=== PATIENT | female | born 1975 | race Native Hawaiian/Other Pacific Islander ===

== ENCOUNTER 2016-08-24 08:54 | Inpatient (IN) | payer OTHER ==
[~2016-08-24 08:54] MED LIST: CETI10TA PO; HYDACET7.5 PO; LORTAB1 TAB PO; LUBI24CA PO; MEDR150I3 IM; OMEPRAZOLE20 M1 PO; SERT100T PO; STOOL SOFTNR1 TAB PO; TIZA4TAB5 PO; ZANAFLEX2 MG PO
== END 2016-09-24 08:00 | disposition still patient (30) ==
LOC: PAVB 08:54
PROVIDERS: ADMIT Family Medicine
DX: Z51.89 Encounter for other specified aftercare (principal)

== ENCOUNTER 2016-09-24 09:00 | Inpatient (IN) | payer OTHER | END 2016-10-25 10:52 | disposition still patient (30) | LOC: PAVB 09:00 | PROVIDERS: ADMIT Family Medicine | DX: Z51.89 Encounter for other specified aftercare (principal) ==

== ENCOUNTER 2016-10-25 11:33 | Inpatient (IN) | payer OTHER | END 2016-11-22 12:31 | disposition still patient (30) | LOC: PAVB 11:33 | PROVIDERS: ADMIT Family Medicine | DX: Z51.89 Encounter for other specified aftercare (principal) ==

== ENCOUNTER 2016-10-27 11:09 | Outpatient (CLI) | payer OTHER ==
[2016-10-27 11:24] LABS: POTASSIUM 4.1 mmol/L (3.6-5.2); SODIUM 139 mmol/L (136-145)
[2016-10-27 11:52] LABS: PLATELET COUNT 161 K/uL (152-353)
[2016-10-27 12:37] LABS: POTASSIUM 4.1 mmol/L (3.6-5.2); SODIUM 139 mmol/L (136-145)
== END 2016-10-27 12:09 | disposition home or self-care (01) ==
LOC: LAB 11:09
PROVIDERS: Family Medicine
DX: F84.0 Autistic disorder (principal); F41.8 Other specified anxiety disorders
CPT/HCPCS: 80053; 82248; 85027

== ENCOUNTER 2016-10-30 12:30 | Outpatient (CLI) | payer OTHER ==
[2016-10-30 12:52] LABS: PLATELET COUNT 152 K/uL (152-353)
== END 2016-10-30 20:11 | disposition home or self-care (01) ==
LOC: LAB 12:30
PROVIDERS: Family Medicine
DX: R74.8 Abnormal levels of other serum enzymes (principal); R73.9 Hyperglycemia, unspecified; Z79.899 Other long term (current) drug therapy; Z51.81 Encounter for therapeutic drug level monitoring
CPT/HCPCS: 80061; 80076; 83036; 84443; 85027

== ENCOUNTER 2016-10-31 09:44 | Outpatient (CLI) | payer OTHER | END 2016-10-31 20:28 | disposition home or self-care (01) | LOC: US 09:44 | DX: R74.8 Abnormal levels of other serum enzymes (principal) ==

== ENCOUNTER 2016-11-22 12:37 | Inpatient (IN) | payer OTHER | END 2016-12-23 08:09 | disposition still patient (30) | LOC: PAVB 12:37 | PROVIDERS: ADMIT Family Medicine | DX: Z51.89 Encounter for other specified aftercare (principal) | CPT/HCPCS: 36415 ==

== ENCOUNTER 2016-11-27 03:48 | Outpatient (CLI) | payer OTHER ==
[2016-11-27 04:38] LABS: POTASSIUM 2.9 mmol/L (3.6-5.2); SODIUM 139 mmol/L (136-145)
[2016-11-27 14:19] LABS: PLATELET COUNT 221 K/uL (152-353)
[2016-11-27 14:23] LABS: POTASSIUM 3.5 mmol/L (3.6-5.2)
[2016-11-27 15:19] LABS: SODIUM 140 mmol/L (136-145)
== END 2016-11-27 19:30 | disposition home or self-care (01) ==
LOC: LAB 03:48
PROVIDERS: Family Medicine
DX: R79.89 Other specified abnormal findings of blood chemistry (principal); Z51.81 Encounter for therapeutic drug level monitoring
CPT/HCPCS: 36415; 80053; 81000; 85027

== ENCOUNTER 2016-12-05 03:42 | Outpatient (CLI) | payer OTHER ==
[2016-12-05 04:15] LABS: SODIUM 138 mmol/L (136-145)
== END 2016-12-05 19:28 | disposition home or self-care (01) ==
LOC: LAB 03:42
PROVIDERS: Family Medicine
DX: E87.6 Hypokalemia (principal); R73.9 Hyperglycemia, unspecified
CPT/HCPCS: 36415; 80053; 83036

== ENCOUNTER 2016-12-06 06:21 | Outpatient (CLI) | payer OTHER | END 2016-12-06 19:09 | disposition home or self-care (01) | LOC: RAD 06:21 → LAB 06:21 | DX: R14.0 Abdominal distension (gaseous) (principal); R11.2 Nausea with vomiting, unspecified; N39.0 Urinary tract infection, site not specified; R82.99 Other abnormal findings in urine | CPT/HCPCS: 81000; 87077; 87086; 87088; 87186 ==

== ENCOUNTER 2016-12-23 08:57 | Inpatient (IN) | payer OTHER | END 2017-01-22 09:15 | disposition still patient (30) | LOC: PAVB 08:57 | PROVIDERS: ADMIT Family Medicine | DX: Z51.89 Encounter for other specified aftercare (principal) ==

== ENCOUNTER 2017-01-22 10:19 | Inpatient (IN) | payer OTHER | END 2017-02-22 10:13 | disposition still patient (30) | LOC: PAVB 10:19 | PROVIDERS: ADMIT Family Medicine | DX: Z51.89 Encounter for other specified aftercare (principal) ==

== ENCOUNTER 2017-02-22 10:19 | Inpatient (IN) | payer OTHER ==
[2017-03-19] MEDS ORDERED: ALEN70TA19 PO (18:56)
[2017-03-19] MEDS ORDERED: [UNRECOGNIZED DRUG - OTHER] PO (18:57)
[2017-03-19] MEDS ORDERED: CALCIUM PO (18:57)
[2017-03-19] MEDS ORDERED: MEDROXYPROG150 MG/ML IM (18:58)
[2017-03-19] MEDS ORDERED: OMEP20CA PO (18:59)
[2017-03-19] MEDS ORDERED: MIRALAX3350 NF OR (18:59)
[2017-03-19] MEDS ORDERED: SERT50TA PO (19:00)
[2017-03-19] MEDS ORDERED: CETI10TA PO (19:00)
[2017-03-19] MEDS ORDERED: OLAN2.5T2 PO (19:00)
[2017-03-19] MEDS ORDERED: KLOR-CON M2020 MEQ OR (19:01)
[2017-03-19] MEDS ORDERED: MULTIVITAMI1 OR (19:02)
== END 2017-03-24 15:24 | disposition still patient (30) ==
LOC: PAVB 10:19
PROVIDERS: ADMIT Family Medicine
DX: Z51.89 Encounter for other specified aftercare (principal)

== ENCOUNTER 2017-03-19 14:07 | Outpatient (CLI) | payer OTHER ==
[2017-03-19] MEDS ORDERED: ALEN70TA19 PO (18:56)
[2017-03-19] MEDS ORDERED: [UNRECOGNIZED DRUG - OTHER] PO (18:57)
[2017-03-19] MEDS ORDERED: CALCIUM PO (18:57)
[2017-03-19] MEDS ORDERED: MEDROXYPROG150 MG/ML IM (18:58)
[2017-03-19] MEDS ORDERED: MIRALAX3350 NF OR (18:59)
[2017-03-19] MEDS ORDERED: OMEP20CA PO (18:59)
[2017-03-19] MEDS ORDERED: OLAN2.5T2 PO (19:00)
[2017-03-19] MEDS ORDERED: SERT50TA PO (19:00)
[2017-03-19] MEDS ORDERED: CETI10TA PO (19:00)
[2017-03-19] MEDS ORDERED: KLOR-CON M2020 MEQ OR (19:01)
[2017-03-19] MEDS ORDERED: MULTIVITAMI1 OR (19:02)
== END 2017-03-19 15:10 | disposition home or self-care (01) ==
LOC: RAD 14:07
DX: K59.09 Other constipation (principal)

== ENCOUNTER 2017-03-19 18:44 | Emergency (ER) | payer OTHER ==
[~2017-03-19] VITALS: Ht 137.2 cm; Wt 39.2 kg
[2017-03-19 18:45] VITALS: TEMP 98.3
[2017-03-19] MEDS ORDERED: ALEN70TA19 PO (18:56)
[2017-03-19] MEDS ORDERED: CALCIUM PO (18:57)
[2017-03-19] MEDS ORDERED: [UNRECOGNIZED DRUG - OTHER] PO (18:57)
[2017-03-19] MEDS ORDERED: MEDROXYPROG150 MG/ML IM (18:58)
[2017-03-19] MEDS ORDERED: OMEP20CA PO (18:59)
[2017-03-19] MEDS ORDERED: MIRALAX3350 NF OR (18:59)
[2017-03-19] MEDS ORDERED: OLAN2.5T2 PO (19:00)
[2017-03-19] MEDS ORDERED: CETI10TA PO (19:00)
[2017-03-19] MEDS ORDERED: SERT50TA PO (19:00)
[2017-03-19] MEDS ORDERED: KLOR-CON M2020 MEQ OR (19:01)
[2017-03-19] MEDS ORDERED: MULTIVITAMI1 OR (19:02)
[2017-03-19 19:15] LABS: PLATELET COUNT 249 K/uL (152-353)
[2017-03-19 19:26] LABS: POTASSIUM 4.1 mmol/L (3.6-5.2); SODIUM 140 mmol/L (136-145)
[2017-03-19 22:20] VITALS: BP 122/88
== END 2017-03-19 22:35 | disposition short-term general hospital (02) ==
LOC: ED 18:44
DX: K56.69 Other intestinal obstruction (principal); K56.2 Volvulus
CPT/HCPCS: 36415; 43754; 80053; 85027; 96361; 96366; 96374; 96375; 99292; J0696; J2060; J2250; J2405; Q9963

== ENCOUNTER 2017-03-19 22:55 | Outpatient (CLI) | payer OTHER ==
[~2017-03-19 22:55] MED LIST changes: +ALEN70TA19 PO; +CALCIUM PO; +KLOR-CON M2020 MEQ OR; +MEDROXYPROG150 MG/ML IM; +MIRALAX3350 NF OR; +MULTIVITAMI1 OR; +OLAN2.5T2 PO; +OMEP20CA PO; +SERT50TA PO; +[UNRECOGNIZED DRUG - OTHER] PO
== END 2017-03-19 23:19 | disposition short-term general hospital (02) ==
LOC: AMB 22:55
DX: K56.69 Other intestinal obstruction (principal); K56.2 Volvulus
CPT/HCPCS: A0425; A0429

== ENCOUNTER 2017-03-24 15:50 | Inpatient (IN) | payer OTHER | END 2017-04-24 09:46 | disposition still patient (30) | LOC: PAVB 15:50 | PROVIDERS: ADMIT Family Medicine | DX: Z51.89 Encounter for other specified aftercare (principal) ==

== ENCOUNTER 2017-03-29 16:16 | Outpatient (CLI) | payer OTHER ==
[2017-03-29 17:44] LABS: POTASSIUM 4.1 mmol/L (3.6-5.2); SODIUM 138 mmol/L (136-145)
[2017-03-29 17:46] LABS: PLATELET COUNT 275 K/uL (152-353)
== END 2017-03-29 17:57 | disposition home or self-care (01) ==
LOC: LAB 16:16
PROVIDERS: Family Medicine
DX: R19.7 Diarrhea, unspecified (principal); Z90.49 Acquired absence of other specified parts of digestive tract
CPT/HCPCS: 36415; 80053; 85027

== ENCOUNTER 2017-03-30 03:17 | Emergency (ER) | payer OTHER ==
[~2017-03-30] VITALS: Ht 134.6 cm; Wt 44.5 kg
[2017-03-30 04:07] VITALS: BP 94/65; TEMP 99.6
== END 2017-03-30 04:00 | disposition short-term general hospital (02) ==
LOC: ED 03:17
DX: K65.8 Other peritonitis (principal); Z98.890 Other specified postprocedural states
CPT/HCPCS: 96361; 96374; 99285; J0696

== ENCOUNTER 2017-04-09 16:12 | Outpatient (CLI) | payer OTHER | END 2017-04-09 17:15 | disposition home or self-care (01) | LOC: RAD 16:12 | DX: R05 Cough (principal) ==

== ENCOUNTER 2017-04-11 04:44 | Outpatient (CLI) | payer OTHER ==
[2017-04-11 05:00] LABS: PLATELET COUNT 402 K/uL (152-353)
== END 2017-04-11 19:09 | disposition home or self-care (01) ==
LOC: LAB 04:44
PROVIDERS: Family Medicine
DX: K59.09 Other constipation (principal)
CPT/HCPCS: 82150; 83690; 85027

== ENCOUNTER 2017-04-12 09:21 | Outpatient (CLI) | payer OTHER ==
[2017-04-12 09:56] LABS: POTASSIUM 4.2 mmol/L (3.6-5.2); SODIUM 137 mmol/L (136-145)
== END 2017-04-12 19:15 | disposition home or self-care (01) ==
LOC: LAB 09:21
PROVIDERS: Family Medicine
DX: D50.8 Other iron deficiency anemias (principal)
CPT/HCPCS: 36415; 80053; 82607; 82746; 83540; 83690; 83735

== ENCOUNTER 2017-04-13 03:57 | Outpatient (CLI) | payer OTHER ==
[2017-04-13 05:41] LABS: PLATELET COUNT 481 K/uL (152-353)
[2017-04-13 06:17] LABS: POTASSIUM 4.4 mmol/L (3.6-5.2); SODIUM 139 mmol/L (136-145)
== END 2017-04-13 05:00 | disposition home or self-care (01) ==
LOC: LAB 03:57
PROVIDERS: Family Medicine
DX: Z51.81 Encounter for therapeutic drug level monitoring (principal)
CPT/HCPCS: 80053; 83690; 85027

== ENCOUNTER 2017-04-15 16:35 | Emergency (ER) | payer OTHER ==
[~2017-04-15] VITALS: Ht 137.2 cm; Wt 35.5 kg
[2017-04-15 17:34] LABS: PLATELET COUNT 522 K/uL (152-353)
[2017-04-15 17:49] LABS: POTASSIUM 5.2 mmol/L (3.6-5.2); SODIUM 134 mmol/L (136-145)
[2017-04-15 19:43] VITALS: BP 118/71; TEMP 98.1
== END 2017-04-15 19:47 ==
LOC: ED 16:35
DX: R50.9 Fever, unspecified (principal)
CPT/HCPCS: 36415; 80053; 81000; 83605; 85027; 99283

== ENCOUNTER 2017-04-16 23:01 | Outpatient (CLI) | payer OTHER ==
[2017-04-17 00:08] LABS: POTASSIUM 5.1 mmol/L (3.6-5.2); SODIUM 134 mmol/L (136-145)
== END 2017-04-16 23:50 | disposition home or self-care (01) ==
LOC: LAB 23:01
PROVIDERS: Family Medicine
DX: Z51.81 Encounter for therapeutic drug level monitoring (principal)
CPT/HCPCS: 36415; 80053; 83690

== ENCOUNTER 2017-04-18 03:59 | Outpatient (CLI) | payer OTHER ==
[2017-04-18 04:41] LABS: POTASSIUM 3.9 mmol/L (3.6-5.2); SODIUM 133 mmol/L (136-145)
== END 2017-04-18 05:00 | disposition home or self-care (01) ==
LOC: LAB 03:59
PROVIDERS: Family Medicine
DX: Z51.81 Encounter for therapeutic drug level monitoring (principal)
CPT/HCPCS: 36415; 80053; 83690

== ENCOUNTER 2017-04-24 11:10 | Inpatient (IN) | payer OTHER | END 2017-05-25 08:44 | disposition still patient (30) | LOC: PAVB 11:10 | PROVIDERS: ADMIT Family Medicine | DX: Z51.89 Encounter for other specified aftercare (principal) ==

== ENCOUNTER 2017-04-25 10:00 | Outpatient (CLI) | payer OTHER ==
[2017-04-25 10:19] LABS: POTASSIUM 4.5 mmol/L (3.6-5.2); SODIUM 136 mmol/L (136-145)
[2017-04-25 10:51] LABS: PLATELET COUNT 261 K/uL (152-353)
== END 2017-04-25 19:42 | disposition home or self-care (01) ==
LOC: LAB 10:00
PROVIDERS: Family Medicine
DX: F84.0 Autistic disorder (principal)
CPT/HCPCS: 36415; 80053; 85027

== ENCOUNTER 2017-05-22 08:54 | Outpatient (CLI) | payer OTHER | END 2017-05-22 10:00 | disposition home or self-care (01) | LOC: RAD 08:54 | DX: R11.2 Nausea with vomiting, unspecified (principal) ==

== ENCOUNTER 2017-05-25 09:25 | Inpatient (IN) | payer OTHER | END 2017-06-24 10:08 | disposition still patient (30) | LOC: PAVB 09:25 | PROVIDERS: ADMIT Family Medicine | DX: Z51.89 Encounter for other specified aftercare (principal) ==

== ENCOUNTER 2017-06-24 10:11 | Inpatient (IN) | payer OTHER | END 2017-07-25 12:59 | disposition still patient (30) | LOC: PAVB 10:11 | PROVIDERS: ADMIT Family Medicine ==

== ENCOUNTER 2017-07-25 14:01 | Inpatient (IN) | payer OTHER | END 2017-08-24 09:22 | disposition still patient (30) | LOC: PAVB 14:01 | PROVIDERS: ADMIT Family Medicine ==

== ENCOUNTER 2017-08-24 09:52 | Inpatient (IN) | payer OTHER ==
[2017-09-13 06:17] LABS: SODIUM 140 mmol/L (136-145)
== END 2017-09-24 09:34 | disposition still patient (30) ==
LOC: PAVB 09:52
PROVIDERS: ADMIT Family Medicine
CPT/HCPCS: 80053; 82248; 83036

== ENCOUNTER 2017-09-01 16:20 | Emergency (ER) | payer OTHER ==
[~2017-09-01] VITALS: Ht 121.9 cm; Wt 39.5 kg
[2017-09-01 16:46] LABS: PLATELET COUNT 245 K/uL (152-353)
[2017-09-01 16:59] LABS: SODIUM 145 mmol/L (136-145)
[2017-09-01 17:12] LABS: POTASSIUM 4.9 mmol/L (3.6-5.2)
[2017-09-01 19:18] VITALS: BP 111/80; TEMP 98
== END 2017-09-01 19:18 | disposition home or self-care (01) ==
LOC: ED 16:20
DX: K56.609 Unspecified intestinal obstruction, unspecified as to partial versus complete obstruction (principal); G80.9 Cerebral palsy, unspecified
CPT/HCPCS: 36415; 43754; 74022; 80053; 82150; 83690; 85027; 96360; 99284

== ENCOUNTER 2017-09-13 05:11 | Outpatient (CLI) | payer OTHER | END 2017-09-13 19:16 | disposition home or self-care (01) | LOC: LAB 05:11 | DX: E16.1 Other hypoglycemia (principal); R10.84 Generalized abdominal pain | CPT/HCPCS: 80053; 82248; 83036 ==

== ENCOUNTER 2017-09-24 10:34 | Inpatient (IN) | payer OTHER | END 2017-10-25 09:57 | disposition still patient (30) | LOC: PAVB 10:34 | PROVIDERS: ADMIT Family Medicine ==

== ENCOUNTER 2017-10-25 10:53 | Inpatient (IN) | payer OTHER | END 2017-11-22 09:21 | disposition still patient (30) | LOC: PAVB 10:53 | PROVIDERS: ADMIT Family Medicine ==

== ENCOUNTER 2017-10-30 05:30 | Outpatient (CLI) | payer OTHER ==
[2017-10-30 06:29] LABS: PLATELET COUNT 186 K/uL (152-353)
[2017-10-30 06:38] LABS: POTASSIUM 4.4 mmol/L (3.6-5.2)
== END 2017-10-30 20:02 | disposition home or self-care (01) ==
LOC: LAB 05:30
PROVIDERS: Family Medicine
DX: E84.0 Cystic fibrosis with pulmonary manifestations (principal)
CPT/HCPCS: 80053; 85027

== ENCOUNTER 2017-11-01 22:23 | Outpatient (CLI) | payer OTHER | END 2017-11-01 23:30 | disposition home or self-care (01) | LOC: LAB 22:23 | DX: R19.5 Other fecal abnormalities (principal) | CPT/HCPCS: 82272 ==

== ENCOUNTER 2017-11-02 19:37 | Outpatient (CLI) | payer OTHER | END 2017-11-02 21:09 | disposition home or self-care (01) | LOC: LAB 19:37 | DX: R19.5 Other fecal abnormalities (principal) | CPT/HCPCS: 82272 ==

== ENCOUNTER 2017-11-04 11:13 | Outpatient (CLI) | payer OTHER | END 2017-11-04 22:52 | disposition home or self-care (01) | LOC: LAB 11:13 | DX: R19.5 Other fecal abnormalities (principal) | CPT/HCPCS: 82272 ==

== ENCOUNTER 2017-11-22 10:13 | Inpatient (IN) | payer OTHER | END 2017-12-23 08:00 | disposition still patient (30) | LOC: PAVB 10:13 | PROVIDERS: ADMIT Family Medicine ==

== ENCOUNTER 2017-12-23 09:00 | Inpatient (IN) | payer OTHER | END 2018-01-22 09:07 | disposition still patient (30) | LOC: PAVB 09:00 | PROVIDERS: ADMIT Family Medicine ==

== ENCOUNTER 2018-01-22 09:57 | Inpatient (IN) | payer OTHER | END 2018-02-22 08:55 | disposition still patient (30) | LOC: PAVB 09:57 | PROVIDERS: ADMIT Family Medicine ==

== ENCOUNTER 2018-02-22 09:44 | Inpatient (IN) | payer OTHER | END 2018-03-24 15:01 | disposition still patient (30) | LOC: PAVB 09:44 | PROVIDERS: ADMIT Family Medicine ==

== ENCOUNTER 2018-03-24 15:44 | Inpatient (IN) | payer OTHER | END 2018-04-24 08:00 | disposition still patient (30) | LOC: PAVB 15:44 | PROVIDERS: ADMIT Family Medicine ==

== ENCOUNTER 2018-04-24 09:00 | Inpatient (IN) | payer OTHER | END 2018-05-25 10:20 | disposition still patient (30) | LOC: PAVB 09:00 | PROVIDERS: ADMIT Family Medicine ==

== ENCOUNTER 2018-04-30 05:33 | Outpatient (CLI) | payer OTHER ==
[2018-04-30 08:56] LABS: PLATELET COUNT 141 K/uL (152-353)
[2018-04-30 09:37] LABS: POTASSIUM 4.5 mmol/L (3.6-5.2)
== END 2018-04-30 19:00 | disposition home or self-care (01) ==
LOC: LAB 05:33
PROVIDERS: Family Medicine
DX: F84.0 Autistic disorder (principal)
CPT/HCPCS: 80053; 85027

== ENCOUNTER 2018-05-06 11:31 | Emergency (ER) | payer OTHER ==
[~2018-05-06] VITALS: Ht 137.2 cm; Wt 49.4 kg
[2018-05-06 13:26] LABS: PLATELET COUNT 210 K/uL (152-353)
[2018-05-06 13:38] LABS: POTASSIUM 4.1 mmol/L (3.6-5.2)
[2018-05-06 21:06] VITALS: BP 114/66; TEMP 97.7
== END 2018-05-06 21:09 | disposition short-term general hospital (02) ==
LOC: ED 11:31
DX: K56.609 Unspecified intestinal obstruction, unspecified as to partial versus complete obstruction (principal)
CPT/HCPCS: 36415; 74022; 80053; 85027; 99284

== ENCOUNTER 2018-05-25 10:23 | Inpatient (IN) | payer OTHER | END 2018-06-24 09:35 | disposition still patient (30) | LOC: PAVB 10:23 | PROVIDERS: ADMIT Family Medicine ==

== ENCOUNTER 2018-06-24 11:57 | Inpatient (IN) | payer OTHER | END 2018-07-25 08:49 | disposition still patient (30) | LOC: PAVB 11:57 | PROVIDERS: ADMIT Family Medicine ==

== ENCOUNTER 2018-07-25 08:53 | Inpatient (IN) | payer OTHER | END 2018-08-24 08:35 | disposition still patient (30) | LOC: PAVB 08:53 | PROVIDERS: ADMIT Family Medicine ==

== ENCOUNTER 2018-08-05 17:15 | Inpatient (IN) | payer OTHER ==
[~2018-08-05] VITALS: Ht 147.3 cm; Wt 39.5 kg
[2018-08-05 17:15] VITALS: BP 125/72; TEMP 98.4
[2018-08-05 17:55] LABS: PLATELET COUNT 204 K/uL (152-353)
[2018-08-05 18:00] VITALS: BP 121/75
[2018-08-05 19:00] VITALS: BP 118/70; TEMP 98.1
[2018-08-05 19:03] LABS: POTASSIUM 4.2 mmol/L (3.6-5.2)
[2018-08-05 20:00] VITALS: BP 122/73; TEMP 98
[2018-08-06] VITALS: BP 133/85; TEMP 100.1
[2018-08-06 04:00] VITALS: BP 116/82; TEMP 98.8
[2018-08-06 05:29] VITALS: BP 109/81; TEMP 97; Ht 147.3 cm; Wt 39.5 kg
[2018-08-06 06:19] LABS: PLATELET COUNT 229 K/uL (152-353)
[2018-08-06 08:00] VITALS: BP 96/72; TEMP 98.1
--- NOTE | 2018-08-06 13:17 | NUR ---
PATIENT SITTING UP IN BED AWAKE ALERT DR MAHER VISITED CHECKED PT RECIEVED ORDERS WILL TRY CLEAR LIQUIDS.
--- NOTE | 2018-08-06 14:56 | NUR ---
PATIENT TAKING PO FLUIDS VIA HER BOTTLE/CUP MAXIMILIANO OK. IV FLUIDS ON HOLD WILL GO SLOW AND MONITOR FOR SIGN N/V. SITTING UP IN BED
[2018-08-06 16:00] VITALS: BP 95/68; TEMP 98
[2018-08-06 20:00] VITALS: BP 97/64; TEMP 98.8
[2018-08-07 00:22] VITALS: BP 92/65
[2018-08-07 04:00] VITALS: BP 97/64; TEMP 98.8
--- NOTE | 2018-08-07 05:55 | NUR ---
PT HAS RESTED THIS SHIFT. PT DRINKING PO FLUIDS WITH ANY VOMITING NOTED. DR. MAHER CALLED TO CHECK ON PT AT 01:00 AM. NO IVF'S NEEDED. PT TOLERATES PO CLEAR LIQUIDS. BED LINENS WERE CHANGED AND COLOSTOMY WAS EMPTIED. LARGE AMOUT OF LIQUID STOOL EMPTIED. BAG WAS BURPED TO REMOVE GAS.
[2018-08-07 06:19] LABS: PLATELET COUNT 207 K/uL (152-353)
[2018-08-07 06:48] LABS: POTASSIUM 3.3 mmol/L (3.6-5.2)
[2018-08-07 08:00] VITALS: BP 93/62; TEMP 98.3
[2018-08-07 12:00] VITALS: BP 120/72; TEMP 98.4
== END 2018-08-07 14:45 | DRG 389 ==
LOC: ED 17:15 → MED/SURG 20:39
PROVIDERS: ADMIT Family Medicine
DX: K56.699 Other intestinal obstruction unspecified as to partial versus complete obstruction (principal); F84.0 Autistic disorder; G80.8 Other cerebral palsy; M41.80 Other forms of scoliosis, site unspecified; R10.84 Generalized abdominal pain; R11.2 Nausea with vomiting, unspecified; R74.8 Abnormal levels of other serum enzymes; E86.0 Dehydration; Z93.3 Colostomy status
CPT/HCPCS: 36415; 74022; 80053; 83605; 85027; 96374; 99284; J2060; J2405

== ENCOUNTER 2018-08-08 06:13 | Outpatient (CLI) | payer OTHER ==
[2018-08-08 08:19] LABS: POTASSIUM 4.1 mmol/L (3.6-5.2)
== END 2018-08-08 19:27 | disposition home or self-care (01) ==
LOC: LAB 06:13
PROVIDERS: Family Medicine
DX: Z93.2 Ileostomy status (principal)
CPT/HCPCS: 36415; 80053

== ENCOUNTER 2018-08-13 09:30 | Outpatient (CLI) | payer OTHER | END 2018-08-13 22:23 | disposition home or self-care (01) | LOC: US 09:30 | DX: R11.2 Nausea with vomiting, unspecified (principal); K56.7 Ileus, unspecified ==

== ENCOUNTER 2018-08-24 08:40 | Inpatient (IN) | payer OTHER | END 2018-09-24 11:07 | disposition still patient (30) | LOC: PAVB 08:40 | PROVIDERS: ADMIT Family Medicine ==

== ENCOUNTER 2018-09-24 11:31 | Inpatient (IN) | payer OTHER ==
[2018-10-20] MEDS ORDERED: ZINC220 MG PO (03:09)
[2018-10-20] MEDS ORDERED: FLONASE AL50 MCG/ACT (03:13)
[2018-10-20] MEDS ORDERED: METOPROLOL25 M1 PO (03:14)
[2018-10-20] MEDS ORDERED: ASCO500T18 PO (03:17)
[2018-10-20] MEDS ORDERED: HYDR-3182 PO (03:18)
[2018-10-20] MEDS ORDERED: DIPH25CA90 PO (03:20)
[2018-10-20] MEDS ORDERED: TYLENOL325 MG PO (03:21)
== END 2018-10-25 13:31 | disposition still patient (30) ==
LOC: PAVB 11:31
PROVIDERS: ADMIT Family Medicine

== ENCOUNTER 2018-10-01 22:40 | Inpatient (IN) | payer OTHER ==
[~2018-10-01] VITALS: Ht 121.9 cm; Wt 39.2 kg
[2018-10-01 22:41] VITALS: BP 122/80; TEMP 97.7
[2018-10-01 23:36] LABS: PLATELET COUNT 185 K/uL (152-353)
[2018-10-01 23:42] LABS: POTASSIUM 4.3 mmol/L (3.6-5.2)
[2018-10-02] VITALS (22 sets, daily range): BP systolic 91–129; BP diastolic 54–95; TEMP 97.6–98.1; Ht 121.9 cm; Wt 39.2 kg
[2018-10-02 08:45] LABS: PLATELET COUNT 191 K/uL (152-353)
[2018-10-02 09:05] LABS: POTASSIUM 4.7 mmol/L (3.6-5.2)
[2018-10-03] VITALS (27 sets, daily range): BP systolic 82–119; BP diastolic 44–74; TEMP 97.5–99
[2018-10-03 03:15] LABS: PLATELET COUNT 138 K/uL (152-353)
[2018-10-03 03:45] LABS: POTASSIUM 4.5 mmol/L (3.6-5.2)
[2018-10-04] VITALS (31 sets, daily range): BP systolic 80–98; BP diastolic 43–74; TEMP 97.6–99.2
[2018-10-04 06:01] LABS: PLATELET COUNT 119 K/uL (152-353)
[2018-10-04 06:16] LABS: POTASSIUM 3.3 mmol/L (3.6-5.2)
[2018-10-04 08:49] LABS: PLATELET COUNT 118 K/uL (152-353)
[2018-10-04 10:44] LABS: POTASSIUM 3.1 mmol/L (3.6-5.2)
== END 2018-10-04 23:55 | disposition short-term general hospital (02) | DRG 388 ==
LOC: ED 22:40 → ICU 10-02 02:19
PROVIDERS: Internal Medicine; ADMIT Family Medicine
PROC: 30233N1 Transfusion of Nonautologous Red Blood Cells into Peripheral Vein, Percutaneous Approach (ICD-10-PCS; principal; 2018-10-04)
DX: K56.699 Other intestinal obstruction unspecified as to partial versus complete obstruction (principal); K63.1 Perforation of intestine (nontraumatic); J69.0 Pneumonitis due to inhalation of food and vomit; F84.0 Autistic disorder; D62 Acute posthemorrhagic anemia; G80.8 Other cerebral palsy; K59.09 Other constipation; M41.80 Other forms of scoliosis, site unspecified; Z93.3 Colostomy status
CPT/HCPCS: 36415; 74022; 80048; 80053; 80061; 80074; 81000; 82150; 82271; 82550; 83605; 83690; 83880; 83986; 84484; 85014; 85018; 85027; 86850; 86900; 86901; 86922; 87040; 87088; 93005; 94664; 94760; 99285; J1170; J1650; J1885; J1956; J2060; J2405; J2550; J3480; J3490; J7060; P9016; Q9963

== ENCOUNTER 2018-10-19 21:04 | Inpatient (IN) | payer OTHER ==
[~2018-10-19] VITALS: Ht 121.9 cm; Wt 37.3 kg
[2018-10-19 21:23] VITALS: BP 85/47; TEMP 98.1
[2018-10-19 21:30] VITALS: BP 91/65
[2018-10-19 22:16] VITALS: BP 99/68
[2018-10-19 22:22] LABS: POTASSIUM 5.1 mmol/L (3.6-5.2); SODIUM 151 mmol/L (136-145)
[2018-10-19 22:37] LABS: PLATELET COUNT 392 K/uL (152-353)
[2018-10-19 22:45] VITALS: BP 106/79
[2018-10-19 23:16] VITALS: BP 99/60
[2018-10-19 23:45] VITALS: BP 105/82
[2018-10-20] VITALS (32 sets, daily range): BP systolic 67–114; BP diastolic 39–83; TEMP 97.7–98.4; Ht 121.9 cm; Wt 37.3 kg
[2018-10-20] MEDS ORDERED: ZINC220 MG PO (03:09)
[2018-10-20] MEDS ORDERED: FLONASE AL50 MCG/ACT (03:13)
[2018-10-20] MEDS ORDERED: METOPROLOL25 M1 PO (03:14)
[2018-10-20] MEDS ORDERED: ASCO500T18 PO (03:17)
[2018-10-20] MEDS ORDERED: HYDR-3182 PO (03:18)
[2018-10-20] MEDS ORDERED: DIPH25CA90 PO (03:20)
[2018-10-20] MEDS ORDERED: TYLENOL325 MG PO (03:21)
[2018-10-20 04:43] LABS: PLATELET COUNT 333 K/uL (152-353)
[2018-10-20 05:02] LABS: POTASSIUM 5.5 mmol/L (3.6-5.2)
[2018-10-20 16:16] LABS: POTASSIUM 4.2 mmol/L (3.6-5.2)
[2018-10-21] VITALS (23 sets, daily range): BP systolic 91–113; BP diastolic 50–93; TEMP 98.1–99.8
[2018-10-21 05:16] LABS: PLATELET COUNT 227 K/uL (152-353)
[2018-10-21 05:38] LABS: POTASSIUM 2.8 mmol/L (3.6-5.2)
[2018-10-22] VITALS (24 sets, daily range): BP systolic 85–102; BP diastolic 49–68; TEMP 98–99.9
[2018-10-22 05:39] LABS: PLATELET COUNT 181 K/uL (152-353)
[2018-10-22 05:52] LABS: POTASSIUM 3.9 mmol/L (3.6-5.2)
[2018-10-23] VITALS (23 sets, daily range): BP systolic 84–111; BP diastolic 47–78; TEMP 98.3–99.1
[2018-10-23 06:29] LABS: PLATELET COUNT 143 K/uL (152-353)
[2018-10-23 06:42] LABS: POTASSIUM 3.3 mmol/L (3.6-5.2)
[2018-10-24] VITALS (24 sets, daily range): BP systolic 88–111; BP diastolic 53–76; TEMP 98.3–98.8
[2018-10-24 06:32] LABS: PLATELET COUNT 132 K/uL (152-353)
[2018-10-24 06:40] LABS: POTASSIUM 2.7 mmol/L (3.6-5.2)
[2018-10-25] VITALS (17 sets, daily range): BP systolic 80–114; BP diastolic 45–79; TEMP 98.1–99.1
[2018-10-25 09:20] LABS: PLATELET COUNT 133 K/uL (152-353)
[2018-10-26] VITALS: BP 101/68; TEMP 98.8
[2018-10-26 04:00] VITALS: BP 109/68; TEMP 98.5
[2018-10-26 08:00] VITALS: BP 102/67; TEMP 97.7
[2018-10-26 10:32] LABS: PLATELET COUNT 150 K/uL (152-353)
[2018-10-26 11:01] LABS: POTASSIUM 3.8 mmol/L (3.6-5.2)
[2018-10-26 12:00] VITALS: BP 116/80; TEMP 98
[2018-10-26 16:00] VITALS: BP 116/80; TEMP 98
[2018-10-26 20:00] VITALS: BP 95/65; TEMP 98.2
[2018-10-27] VITALS: BP 101/69; TEMP 98.8
[2018-10-27 04:29] VITALS: BP 101/67; TEMP 98.5
[2018-10-27 08:00] VITALS: BP 100/66; TEMP 98.2
[2018-10-27 12:00] VITALS: BP 101/69; TEMP 97.8
[2018-10-27 16:10] VITALS: BP 110/76; TEMP 97.1
[2018-10-27 20:00] VITALS: BP 103/77; TEMP 99.6
[2018-10-28] VITALS: BP 127/85; TEMP 98.3
[2018-10-28 04:00] VITALS: BP 118/72; TEMP 98.8
[2018-10-28 05:57] LABS: PLATELET COUNT 179 K/uL (152-353)
[2018-10-28 06:30] LABS: POTASSIUM 4.4 mmol/L (3.6-5.2)
[2018-10-28 08:00] VITALS: BP 131/87; TEMP 97.7
[2018-10-28 12:00] VITALS: BP 153/90; TEMP 99.2
== END 2018-10-28 14:05 | DRG 872 ==
LOC: ED 21:04 → ICU 23:00 → MED/SURG 23:01 → ICU 23:02 → MED/SURG 10-25 15:57
PROVIDERS: Family Medicine; ADMIT Internal Medicine
DX: A41.89 Other specified sepsis (principal); N39.0 Urinary tract infection, site not specified; N17.8 Other acute kidney failure; E87.0 Hyperosmolality and hypernatremia; K56.699 Other intestinal obstruction unspecified as to partial versus complete obstruction; F84.0 Autistic disorder; I48.91 Unspecified atrial fibrillation; R00.0 Tachycardia, unspecified; E86.0 Dehydration; I95.89 Other hypotension; G80.8 Other cerebral palsy; E87.6 Hypokalemia; E83.42 Hypomagnesemia; M41.80 Other forms of scoliosis, site unspecified
CPT/HCPCS: 36415; 74022; 80048; 80053; 81000; 82272; 82550; 83605; 83630; 83735; 84484; 85027; 87015; 87040; 87045; 87077; 87086; 87088; 87185; 87186; 87324; 87328; 87329; 87449; 87899; 93005; 96361; 96365; 96367; 99285; A4377; J1956; J2405; J3475; J3490

== ENCOUNTER 2018-10-25 13:47 | Inpatient (IN) | payer OTHER ==
[~2018-10-25 13:47] MED LIST changes: +ASCO500T18 PO; +DIPH25CA90 PO; +FLONASE AL50 MCG/ACT; +HYDR-3182 PO; +METOPROLOL25 M1 PO; +TYLENOL325 MG PO; +ZINC220 MG PO
== END 2018-11-22 11:25 | disposition still patient (30) ==
LOC: PAVB 13:47
PROVIDERS: ADMIT Family Medicine

== ENCOUNTER 2018-10-29 10:58 | Outpatient (CLI) | payer OTHER ==
[2018-10-29 11:29] LABS: POTASSIUM 4.7 mmol/L (3.6-5.2)
== END 2018-10-29 20:27 | disposition home or self-care (01) ==
LOC: LAB 10:58
PROVIDERS: Family Medicine
DX: K56.690 Other partial intestinal obstruction (principal)
CPT/HCPCS: 80048; 83735

== ENCOUNTER 2018-10-29 16:57 | Outpatient (CLI) | payer OTHER | END 2018-10-29 17:37 | disposition short-term general hospital (02) | LOC: AMB 16:57 | DX: E86.0 Dehydration (principal) | CPT/HCPCS: A0425; A0427 ==

== ENCOUNTER 2018-11-22 11:44 | Inpatient (IN) | payer OTHER ==
[2018-12-03 06:03] LABS: PLATELET COUNT 607 K/uL (152-353)
[2018-12-03 07:15] LABS: POTASSIUM 4.6 mmol/L (3.6-5.2)
== END 2018-12-23 11:30 | disposition still patient (30) ==
LOC: PAVB 11:44
PROVIDERS: ADMIT Family Medicine
CPT/HCPCS: 80053; 83735; 85027; 87070; 87077; 87185; 87186; 87205

== ENCOUNTER 2018-12-23 11:39 | Inpatient (IN) | payer OTHER | END 2019-01-22 11:19 | disposition still patient (30) | LOC: PAVB 11:39 | PROVIDERS: ADMIT Family Medicine ==

== ENCOUNTER 2019-01-22 12:37 | Inpatient (IN) | payer OTHER | END 2019-02-22 08:40 | disposition still patient (30) | LOC: PAVB 12:37 | PROVIDERS: ADMIT Family Medicine | DX: Z51.89 Encounter for other specified aftercare (principal) ==

== ENCOUNTER 2019-02-22 08:43 | Inpatient (IN) | payer OTHER | END 2019-03-24 09:39 | disposition still patient (30) | LOC: PAVB 08:43 | PROVIDERS: ADMIT Family Medicine ==

== ENCOUNTER 2019-03-24 09:43 | Inpatient (IN) | payer OTHER | END 2019-04-24 10:37 | disposition still patient (30) | LOC: PAVB 09:43 | PROVIDERS: ADMIT Family Medicine ==

== ENCOUNTER 2019-04-24 11:27 | Inpatient (IN) | payer OTHER | END 2019-05-25 16:28 | disposition still patient (30) | LOC: PAVB 11:27 | PROVIDERS: ADMIT Family Medicine ==

== ENCOUNTER 2019-04-30 03:24 | Outpatient (CLI) | payer OTHER ==
[2019-04-30 04:21] LABS: PLATELET COUNT 180 K/uL (152-353)
[2019-04-30 04:43] LABS: POTASSIUM 4.7 mmol/L (3.6-5.2)
== END 2019-04-30 23:42 | disposition home or self-care (01) ==
LOC: LAB 03:24
PROVIDERS: Family Medicine
DX: I10 Essential (primary) hypertension (principal)
CPT/HCPCS: 36415; 80053; 85027

== ENCOUNTER 2019-05-25 16:32 | Inpatient (IN) | payer OTHER | END 2019-06-24 09:23 | disposition still patient (30) | LOC: PAVB 16:32 | PROVIDERS: ADMIT Family Medicine ==

== ENCOUNTER 2019-06-24 11:12 | Inpatient (IN) | payer OTHER | END 2019-07-25 11:11 | disposition still patient (30) | LOC: PAVB 11:12 | PROVIDERS: ADMIT Family Medicine ==

== ENCOUNTER 2019-07-25 11:43 | Inpatient (IN) | payer OTHER | END 2019-08-24 08:00 | disposition still patient (30) | LOC: PAVB 11:43 | PROVIDERS: ADMIT Family Medicine ==

== ENCOUNTER 2019-08-24 09:48 | Inpatient (IN) | payer OTHER | END 2019-09-24 09:03 | disposition still patient (30) | LOC: PAVB 09:48 | PROVIDERS: ADMIT Family Medicine ==

== ENCOUNTER 2019-09-24 09:06 | Inpatient (IN) | payer OTHER | END 2019-10-25 09:58 | disposition still patient (30) | LOC: PAVB 09:06 | PROVIDERS: ADMIT Family Medicine ==

== ENCOUNTER 2019-10-25 10:01 | Inpatient (IN) | payer OTHER | END 2019-11-23 13:17 | disposition still patient (30) | LOC: PAVB 10:01 | PROVIDERS: ADMIT Family Medicine ==

== ENCOUNTER 2019-10-27 05:34 | Outpatient (CLI) | payer OTHER ==
[2019-10-27 06:29] LABS: PLATELET COUNT 131 K/uL (152-353)
[2019-10-27 06:49] LABS: POTASSIUM 4.6 mmol/L (3.6-5.2)
== END 2019-10-27 19:09 | disposition home or self-care (01) ==
LOC: LAB 05:34
PROVIDERS: Family Medicine
DX: I10 Essential (primary) hypertension (principal)
CPT/HCPCS: 80053; 85027

== ENCOUNTER 2019-11-23 13:23 | Inpatient (IN) | payer OTHER | END 2019-12-24 09:44 | disposition still patient (30) | LOC: PAVB 13:23 | PROVIDERS: ADMIT Family Medicine ==

== ENCOUNTER 2019-12-24 10:38 | Inpatient (IN) | payer OTHER | END 2020-01-23 09:05 | disposition still patient (30) | LOC: PAVB 10:38 | PROVIDERS: ADMIT Family Medicine ==

== ENCOUNTER 2020-01-23 10:16 | Inpatient (IN) | payer OTHER | END 2020-02-23 09:13 | disposition still patient (30) | LOC: PAVB 10:16 | PROVIDERS: ADMIT Family Medicine | CPT/HCPCS: 87635; U0002 ==

== ENCOUNTER 2020-02-23 11:01 | Inpatient (IN) | payer OTHER | END 2020-03-24 10:22 | disposition still patient (30) | LOC: PAVB 11:01 | PROVIDERS: ADMIT Family Medicine | CPT/HCPCS: 87635; U0002 ==

== ENCOUNTER 2020-03-24 11:29 | Inpatient (IN) | payer OTHER | END 2020-04-24 09:18 | disposition still patient (30) | LOC: PAVB 11:29 | PROVIDERS: ADMIT Family Medicine | CPT/HCPCS: 87635; U0002 ==

== ENCOUNTER 2020-04-22 10:01 | Outpatient (CLI) | payer OTHER ==
[2020-04-22 11:00] LABS: POTASSIUM 4.2 mmol/L (3.6-5.2)
== END 2020-04-22 19:18 | disposition home or self-care (01) ==
LOC: LAB 10:01
PROVIDERS: Family Medicine
DX: I95.9 Hypotension, unspecified (principal); D64.9 Anemia, unspecified
CPT/HCPCS: 80053

== ENCOUNTER 2020-04-24 09:49 | Inpatient (IN) | payer OTHER | END 2020-05-25 12:19 | disposition still patient (30) | LOC: PAVB 09:49 | PROVIDERS: ADMIT Family Medicine | CPT/HCPCS: 87635; U0002 ==

== ENCOUNTER 2020-04-28 06:09 | Outpatient (CLI) | payer OTHER ==
[2020-04-28 07:49] LABS: PLATELET COUNT 178 K/uL (152-353)
[2020-04-28 08:18] LABS: POTASSIUM 4.5 mmol/L (3.6-5.2)
== END 2020-04-28 19:41 | disposition home or self-care (01) ==
LOC: LAB 06:09
PROVIDERS: Family Medicine
DX: N17.9 Acute kidney failure, unspecified (principal); D64.89 Other specified anemias; G80.9 Cerebral palsy, unspecified; E86.0 Dehydration
CPT/HCPCS: 80053; 85027

== ENCOUNTER 2020-05-25 13:13 | Inpatient (IN) | payer OTHER | END 2020-06-24 11:07 | disposition still patient (30) | LOC: PAVB 13:13 | PROVIDERS: ADMIT Family Medicine ==

== ENCOUNTER 2020-06-24 13:55 | Inpatient (IN) | payer OTHER | END 2020-07-25 08:00 | disposition still patient (30) | LOC: PAVB 13:55 | PROVIDERS: ADMIT Family Medicine ==

== ENCOUNTER 2020-07-25 09:00 | Inpatient (IN) | payer OTHER | END 2020-08-24 10:11 | disposition still patient (30) | LOC: PAVB 09:00 | PROVIDERS: ADMIT Family Medicine; ATTEND Family Medicine ==

== ENCOUNTER 2020-08-24 11:26 | Inpatient (IN) | payer OTHER | END 2020-09-24 09:05 | disposition still patient (30) | LOC: PAVB 11:26 | PROVIDERS: ADMIT Family Medicine; ATTEND Family Medicine ==

== ENCOUNTER 2020-09-21 13:40 | Outpatient (CLI) | payer OTHER ==
[2020-09-21 13:49] LABS: PLATELET COUNT 159 K/uL (152-353)
== END 2020-09-21 23:00 | disposition home or self-care (01) ==
LOC: LAB 13:40
PROVIDERS: ATTEND Family Medicine
DX: N93.9 Abnormal uterine and vaginal bleeding, unspecified (principal)
CPT/HCPCS: 85027

== ENCOUNTER 2020-09-24 09:37 | Inpatient (IN) | payer OTHER | END 2020-10-25 14:41 | disposition still patient (30) | LOC: PAVB 09:37 | PROVIDERS: ADMIT Family Medicine; ATTEND Family Medicine ==

== ENCOUNTER 2020-10-25 14:46 | Inpatient (IN) | payer OTHER | END 2020-11-22 09:56 | disposition still patient (30) | LOC: PAVB 14:46 | PROVIDERS: ADMIT Family Medicine; ATTEND Family Medicine ==

== ENCOUNTER 2020-10-26 08:06 | Outpatient (CLI) | payer OTHER ==
[2020-10-26 08:25] LABS: PLATELET COUNT 125 K/uL (152-353)
[2020-10-26 08:36] LABS: POTASSIUM 4.4 mmol/L (3.6-5.2)
== END 2020-10-26 19:43 | disposition home or self-care (01) ==
LOC: LAB 08:06
PROVIDERS: ATTEND Family Medicine
DX: N17.9 Acute kidney failure, unspecified (principal); D64.89 Other specified anemias; G80.9 Cerebral palsy, unspecified
CPT/HCPCS: 80053; 85027

== ENCOUNTER 2020-11-22 10:41 | Inpatient (IN) | payer OTHER | END 2020-12-23 10:16 | disposition still patient (30) | LOC: PAVB 10:41 | PROVIDERS: ADMIT Family Medicine; ATTEND Family Medicine ==

== ENCOUNTER 2020-12-22 13:55 | Outpatient (CLI) | payer OTHER | END 2020-12-22 22:45 | disposition home or self-care (01) | LOC: MAMMO 13:55 | PROVIDERS: ATTEND Family Medicine | DX: Z12.31 Encounter for screening mammogram for malignant neoplasm of breast (principal) ==

== ENCOUNTER 2020-12-23 10:54 | Inpatient (IN) | payer OTHER | END 2021-01-22 10:52 | disposition still patient (30) | LOC: PAVB 10:54 | PROVIDERS: ADMIT Family Medicine; ATTEND Family Medicine ==

== ENCOUNTER 2021-01-22 11:23 | Inpatient (IN) | payer OTHER | END 2021-02-22 14:41 | disposition still patient (30) | LOC: PAVB 11:23 | PROVIDERS: ADMIT Family Medicine; ATTEND Family Medicine ==

== ENCOUNTER 2021-02-22 15:27 | Inpatient (IN) | payer OTHER | END 2021-03-24 08:00 | disposition still patient (30) | LOC: PAVB 15:27 | PROVIDERS: ADMIT Family Medicine; ATTEND Family Medicine ==

== ENCOUNTER 2021-03-18 07:05 | Outpatient (CLI) | payer OTHER ==
[2021-03-28 08:59] LABS: POTASSIUM 4.1 mmol/L (3.6-5.2)
== END 2021-03-18 23:59 | disposition home or self-care (01) ==
LOC: LAB 07:05
PROVIDERS: ATTEND Family Medicine
DX: R94.5 Abnormal results of liver function studies (principal)
CPT/HCPCS: 36415; 80053

== ENCOUNTER 2021-03-24 09:00 | Inpatient (IN) | payer OTHER | END 2021-04-24 08:00 | disposition still patient (30) | LOC: PAVB 09:00 | PROVIDERS: ADMIT Family Medicine; ATTEND Family Medicine ==

== ENCOUNTER 2021-04-24 09:00 | Inpatient (IN) | payer OTHER | END 2021-05-25 10:36 | disposition still patient (30) | LOC: PAVB 09:00 | PROVIDERS: ADMIT Family Medicine; ATTEND Family Medicine ==

== ENCOUNTER 2021-04-25 06:52 | Outpatient (CLI) | payer OTHER ==
[2021-04-25 08:32] LABS: PLATELET COUNT 180 K/uL (152-353)
[2021-04-25 09:01] LABS: POTASSIUM 4.5 mmol/L (3.6-5.2)
== END 2021-04-25 22:33 | disposition home or self-care (01) ==
LOC: LAB 06:52
PROVIDERS: ATTEND Family Medicine
DX: D64.89 Other specified anemias (principal); G80.9 Cerebral palsy, unspecified; N17.9 Acute kidney failure, unspecified; E86.0 Dehydration
CPT/HCPCS: 80053; 85027

== ENCOUNTER 2021-05-25 13:44 | Inpatient (IN) | payer OTHER | END 2021-06-24 08:46 | disposition still patient (30) | LOC: PAVB 13:44 | PROVIDERS: ADMIT Family Medicine; ATTEND Family Medicine ==

== ENCOUNTER 2021-08-24 11:09 | Inpatient (IN) | payer OTHER | END 2021-09-24 08:24 | disposition still patient (30) | LOC: PAVB 11:09 | PROVIDERS: ADMIT Family Medicine; ATTEND Family Medicine ==

== ENCOUNTER 2021-09-24 08:26 | Inpatient (IN) | payer OTHER | END 2021-10-25 09:34 | disposition still patient (30) | LOC: PAVB 08:26 | PROVIDERS: ADMIT Family Medicine; ATTEND Family Medicine ==

== ENCOUNTER 2021-10-25 15:49 | Inpatient (IN) | payer OTHER | END 2021-11-22 09:02 | disposition still patient (30) | LOC: PAVB 15:49 | PROVIDERS: ADMIT Family Medicine; ATTEND Family Medicine ==

== ENCOUNTER 2021-10-26 08:38 | Outpatient (CLI) | payer OTHER ==
[2021-10-26 10:17] LABS: PLATELET COUNT 144 K/uL (152-353)
[2021-10-26 10:35] LABS: POTASSIUM 4.2 mmol/L (3.6-5.2)
== END 2021-10-26 19:33 | disposition home or self-care (01) ==
LOC: LAB 08:38
PROVIDERS: ATTEND Family Medicine
DX: E86.0 Dehydration (principal); D64.89 Other specified anemias
CPT/HCPCS: 80053; 85027

== ENCOUNTER 2021-11-22 12:58 | Inpatient (IN) | payer OTHER | END 2021-12-23 08:44 | disposition still patient (30) | LOC: PAVB 12:58 | PROVIDERS: ADMIT Family Medicine; ATTEND Family Medicine ==

== ENCOUNTER 2021-12-23 10:02 | Inpatient (IN) | payer OTHER | END 2022-01-22 10:27 | disposition still patient (30) | LOC: PAVB 10:02 | PROVIDERS: ADMIT Family Medicine; ATTEND Family Medicine ==

== ENCOUNTER 2022-01-22 01:40 | Inpatient (IN) | payer OTHER | END 2022-02-22 09:47 | disposition still patient (30) | LOC: PAVB 01:40 | PROVIDERS: ADMIT Family Medicine; ATTEND Family Medicine ==

== ENCOUNTER 2022-02-22 17:12 | Inpatient (IN) | payer OTHER | END 2022-03-24 09:09 | disposition still patient (30) | LOC: PAVB 17:12 | PROVIDERS: ADMIT Family Medicine; ATTEND Family Medicine ==

== ENCOUNTER 2022-03-24 11:56 | Inpatient (IN) | payer OTHER | END 2022-04-24 09:19 | disposition still patient (30) | LOC: PAVB 11:56 | PROVIDERS: ADMIT Family Medicine; ATTEND Family Medicine ==

== ENCOUNTER 2022-04-24 13:19 | Inpatient (IN) | payer OTHER | END 2022-05-25 09:06 | disposition still patient (30) | LOC: PAVB 13:19 | PROVIDERS: ADMIT Family Medicine; ATTEND Family Medicine ==

== ENCOUNTER 2022-04-26 08:41 | Outpatient (CLI) | payer OTHER ==
[2022-04-26 08:57] LABS: PLATELET COUNT 119 K/uL (152-353)
[2022-04-26 09:02] LABS: POTASSIUM 4.6 mmol/L (3.6-5.2)
== END 2022-04-26 18:52 | disposition home or self-care (01) ==
LOC: LAB 08:41
PROVIDERS: ATTEND Family Medicine
DX: G80.9 Cerebral palsy, unspecified (principal); D64.89 Other specified anemias
CPT/HCPCS: 80053; 85027

== ENCOUNTER 2022-05-25 12:21 | Inpatient (IN) | payer OTHER | END 2022-06-24 10:30 | disposition still patient (30) | LOC: PAVB 12:21 | PROVIDERS: ADMIT Family Medicine; ATTEND Family Medicine ==

== ENCOUNTER 2022-06-24 13:00 | Inpatient (IN) | payer OTHER | END 2022-07-25 14:51 | disposition still patient (30) | LOC: PAVB 13:00 | PROVIDERS: ADMIT Family Medicine; ATTEND Family Medicine ==

== ENCOUNTER 2022-07-25 15:55 | Inpatient (IN) | payer OTHER | END 2022-08-24 15:12 | disposition still patient (30) | LOC: PAVB 15:55 | PROVIDERS: ADMIT Family Medicine; ATTEND Family Medicine ==

== ENCOUNTER 2022-08-24 17:38 | Inpatient (IN) | payer OTHER | END 2022-09-24 10:40 | disposition still patient (30) | LOC: PAVB 17:38 | PROVIDERS: ADMIT Family Medicine; ATTEND Family Medicine ==

== ENCOUNTER 2022-09-24 12:37 | Inpatient (IN) | payer OTHER | END 2022-10-25 08:53 | disposition still patient (30) | LOC: PAVB 12:37 | PROVIDERS: ADMIT Family Medicine; ATTEND Family Medicine ==

== ENCOUNTER 2022-10-25 07:52 | Outpatient (CLI) | payer OTHER ==
[2022-10-25 08:04] LABS: PLATELET COUNT 166 K/uL (152-353)
[2022-10-25 08:21] LABS: POTASSIUM 4.3 mmol/L (3.6-5.2)
== END 2022-10-25 19:04 | disposition home or self-care (01) ==
LOC: LAB 07:52
PROVIDERS: ATTEND Family Medicine
DX: G80.9 Cerebral palsy, unspecified (principal); E86.0 Dehydration; D64.89 Other specified anemias
CPT/HCPCS: 80053; 85027

== ENCOUNTER 2022-10-25 11:21 | Inpatient (IN) | payer OTHER | END 2022-11-22 14:19 | disposition still patient (30) | LOC: PAVB 11:21 | PROVIDERS: ADMIT Family Medicine; ATTEND Family Medicine ==

== ENCOUNTER 2022-11-22 14:23 | Inpatient (IN) | payer OTHER | END 2022-12-23 11:29 | disposition still patient (30) | LOC: PAVB 14:23 | PROVIDERS: ADMIT Family Medicine; ATTEND Family Medicine ==

== ENCOUNTER 2022-12-23 12:09 | Inpatient (IN) | payer OTHER | END 2023-01-22 14:05 | disposition still patient (30) | LOC: PAVB 12:09 | PROVIDERS: ADMIT Family Medicine; ATTEND Family Medicine ==

== ENCOUNTER 2023-01-22 14:15 | Inpatient (IN) | payer OTHER | END 2023-02-22 11:29 | disposition still patient (30) | LOC: PAVB 14:15 | PROVIDERS: ADMIT Family Medicine; ATTEND Family Medicine ==

== ENCOUNTER 2023-02-22 11:32 | Inpatient (IN) | payer OTHER | END 2023-03-24 17:36 | disposition still patient (30) | LOC: PAVB 11:32 | PROVIDERS: ADMIT Family Medicine; ATTEND Family Medicine ==

== ENCOUNTER 2023-04-25 14:03 | Outpatient (CLI) | payer OTHER ==
[2023-04-25 14:30] LABS: PLATELET COUNT 168 K/uL (152-353)
[2023-04-25 14:38] LABS: POTASSIUM 4.1 mmol/L (3.6-5.2)
== END 2023-04-25 19:10 | disposition home or self-care (01) ==
LOC: LAB 14:03
PROVIDERS: ATTEND Family Medicine
DX: I10 Essential (primary) hypertension (principal); D64.89 Other specified anemias
CPT/HCPCS: 80053; 85027